=== PATIENT | male | born 2000 | race Hispanic/Latino ===

== ENCOUNTER → 2021-02-06 11:07 | Outpatient (CLI) | payer OTHER, SELFPAY ==
--- NOTE | 2021-02-06 | DI.RAD.S_ITS ---
PROCEDURE: [place] SHOULDER INJECTION MR/CT LT INDICATIONS: Personal history of other (healed) physical injury COMPARISON: [facility], MR, MR SHOULDER LT W CON, 02/06/2021, 11:42. TECHNIQUE: The indications, alternatives, benefits, risks, and complications of the procedure were explained to the patient. Written informed consent was obtained and placed in the chart. The shoulder was examined fluoroscopically and a site for needle placement chosen for entry into the glenohumeral joint from an anterior approach. The skin was prepped and draped in a sterile fashion, and 1% lidocaine infiltrated from skin down to joint capsule. A spinal needle was inserted into the glenohumeral joint, and a small amount of iodinated contrast media injected to confirm intra-articular placement of the needle tip. This was followed by approximately 8 mL dilute solution of a gadolinium containing MR contrast agent. The needle was removed and a dressing was applied. The patient was given postprocedural instructions and sent to the MR suite for MR imaging. FINDINGS: A single fluoroscopic spot image demonstrates intra-articular location of injected iodinated contrast. IMPRESSION: Successful fluoroscopically guided administration of dilute Gadolinium solution into the shoulder joint for MR arthrogram. Dictated by: Rajiv Richardson M.D. on 02/06/2021 at 14:27 Approved by: Rajiv Richardson M.D. on 02/06/2021 at 14:28
--- NOTE | 2021-02-06 | DI.MRI.S_ITS ---
PROCEDURE: MR SHOULDER LT W CON INDICATIONS: Personal history of other (healed) physical injury TECHNIQUE: After the administration of 12 mL of dilute intra-articular Gadolinium contrast, oblique coronal T1 and T2 spin echo with fat saturation, oblique sagittal T1 spin echo with and without fat saturation, oblique sagittal T2 fast spin echo with fat saturation, axial T1 spin echo with fat saturation through the shoulder. COMPARISON: None. FINDINGS: Image quality: Excellent. Rotator cuff: Tendinosis and low-grade articular surface partial-thickness tear involving distal supraspinatus and infraspinatus at their insertion on the humeral head is seen extending to musculotendinous junction. Distal subscapularis tendon is intact. No full-thickness rotator cuff tendon rupture. No rotator cuff muscle atrophy on sagittal images. Bones and bursae: Chronic appearing deformity involving posterior lateral humeral head is seen with mild surrounding edema suggestive of Hill-Sachs fracture. No corresponding Bankart fracture is seen. No acromioclavicular joint degeneration. The acromion demonstrates conventional anatomy, without an os acromiale. Capsule and soft tissues: The glenohumeral ligaments appear intact. Sublabral foramen is seen which is a normal variant. 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 The long head of the biceps tendon demonstrates normal location and morphology. The rotator interval appears normal, without fibrosis. The coracohumeral ligament is of normal thickness. No intra-articular bodies. IMPRESSION: 1. Suggestion of prior shoulder dislocation with subacute to chronic appearing Hill-Sachs deformity. No corresponding Bankart fracture. 2. 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 3. Tendinosis and low-grade articular surface partial-thickness tear involving distal supraspinatus and infraspinatus extending to musculotendinous junction. No full-thickness rotator cuff tendon rupture. Dictated by: Jonathon Caceres M.D. on 02/06/2021 at 13:11 Approved by: Jonathon Caceres M.D. on 02/06/2021 at 13:16
== END ==
PROVIDERS: Referring Provider Orthopaedic Surgery; Visit Provider Orthopaedic Surgery
DX: Z87.828 Personal history of other (healed) physical injury and trauma (principal)
CPT/HCPCS: 23350; 73222; 77002